=== PATIENT | female | born 1990 | race Caucasian/White ===

== ENCOUNTER 2022-09-07 18:47 | Emergency (ER) | payer MEDICAID ==
[2022-09-07] MEDS ORDERED: traMADol 50 MG TABLET PO STA (19:14)
[2022-09-07] MEDS ORDERED: ONDANSETRON ODT 4 MG TABLET TL STA (19:32)
[2022-09-07] MEDS ORDERED: ONDANSETRON 4 MG/2 ML VIAL IM STA (19:38)
[2022-09-07] MEDS ORDERED: ONDANSETRON 4 MG/2 ML VIAL ONE (19:40)
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
--- NOTE | 2022-09-07 21:14 | XRAY Report ---
PROCEDURE: Hand 3 View RT INDICATIONS: pain after fall TECHNIQUE: 3 views of the hand acquired. COMPARISON: None. FINDINGS: Bones: No fractures or dislocations. No suspicious bony lesions. Soft tissues: No suspicious soft tissue calcifications. IMPRESSION: 1. No fracture or dislocation. Reviewed by: Alonzo Stuart MD on 09/07/2022 9:12 PM [facility] Approved by: Alonzo Stuart MD on 09/07/2022 9:12 PM [facility] Station ID: [id number]
[2022-09-07 21:21] VITALS: BP 123/83
== END 2022-09-07 21:00 | disposition home or self-care (01) ==
LOC: ED 18:47
DX: S60.221A Contusion of right hand, initial encounter (principal); W18.30XA Fall on same level, unspecified, initial encounter
CPT/HCPCS: 73130; 96372; 99283; 99284; A9270